=== PATIENT | male | born 1995 | race Caucasian/White ===

== ENCOUNTER 2020-08-09 13:27 | Emergency (ER) | payer OTHER, SELFPAY ==
[2020-08-09 13:37] VITALS: BP 121/69; PULSE 77; RESP 20; TEMP 36.6; O2SAT 100
--- NOTE | 2020-08-09 14:01 | ED.SKABFB ---
HPI - Skin/Abscess/Foreign Bdy General Chief complaint: Skin/Abscess/Foreign Body Stated complaint: rash Time Seen by Provider: 08/09/20 13:50 Source: patient and RN notes reviewed History of Present Illness HPI narrative: 24 year old male who presents to [facility] with complaints of 5 day history of lesion to the medial area of his left foot near ankle. Patient states area started as small red raised area which he thought a mosquito bite that has increased in size to 3.5cm X3cm area of red raised rough looking skin with some inner blackish brown scabbing to center. Patient states that when he awoke this morning he had bloody yellowish drainage coming from lesion area. He denies any fevers, chills or any sweats,he has been cleaning with some wound spray and putting hydrocortisone ointment to lesion. Patient states that area is mildly aching and is itchy at times. MD complaint: rash and lesion Onset (ago): day(s) (5) Tetanus up to date: yes Location: L foot Severity: mild Severity scale (1-10): 2 Quality: aching and pruritic Pain Consistency: colicky Relieving factors: topical medication Exacerbating factors: palpation and movement Context: other (thought was initally a bug bite) Associated symptoms: itching Treatments prior to arrival: OTC topical medication and corticosteroid Related Data Allergies Allergy/AdvReac Type Severity Reaction Status Date / Time No Known Allergies Allergy Unverified 08/06/12 17:54 Review of Systems Review of Systems: Narrative: CONSTITUTIONAL: Denies fever, chills, or sweats. EYES: Denies visual changes, redness, or discharge. ENT: Denies rhinorrhea, congestion, sore throat, or otalgia. CARDIOVASCULAR: Denies chest pain, palpitations, or edema. RESPIRATORY: Denies cough or dyspnea. GASTROINTESTINAL: Denies abdominal pain, nausea, vomiting, or diarrhea. GENITOURINARY: Denies dysuria or hematuria. SKIN: red raised rough skin lesion area to medial aspect of left foot near ankle area aching and itchy with some reported yellow and bloody drainage today. MUSCULOSKELETAL: Denies back pain, joint pain, or myalgia. NEUROLOGIC: Denies headache, numbness, or weakness. PSYCHIATRIC: Denies anxiety or depression. All systems reviewed & are unremarkable except as noted in HPI and below PMFSH Past Medical History Medical History (Updated 10/23/20 @ 14:22 by Mercedes Durant NP) Fracture, clavicle Surgical History Surgical History (Updated 08/09/20 @ 14:18 by Mercedes Durant NP) S/P wisdom tooth extraction Social History Social History (Updated 08/09/20 @ 14:19 by Mercedes Durant NP) Smoking status: Never smoker Alcohol intake: current Substance use: never Living arrangements: with family Occupation/Education: student Gender identity (if verbalized by the patient): Male Comments At time of signature, agree with nursing past medical, surgical, social history. There is no relevant family history pertinent to the presenting complaint Exam Narrative: Exam Narrative: GENERAL: Well-appearing, well-nourished, and in no acute distress. HEAD: Normocephalic, atraumatic. EYES: PERRLA and EOMI. ENT: Nares clear, no rhinorrhea or epistaxis. Mucous membranes moist. NECK: Supple.no lymphadenopathy CHEST: Clear to auscultation. No respiratory distress.SAO2 100% on room HEART: Regular rate and rhythm. No murmur heard. Normal peripheral pulses. ABDOMEN: Soft, nontender, nondistended, normal active bowel sounds. EXTREMITIES: Normal range of motion. No edema. SKIN: Warm, dry with [id number] area of red raised rough rash left medial foot below ankle that has some pustules noted in upper margins and scabbing in center which is brownish and black. states some aching and itching to area with yellowish bloody drainage noted this am. NEURO: No focal deficits. Alert and oriented x3. Course Vital Signs Vital signs: Vital Signs Temperature 36.6 C 08/09/20 13:37 Pulse Rate 77 08/09/20 13:37 Resp
== END 2020-08-09 14:27 | disposition home or self-care (01) ==
PROVIDERS: Emergency Provider Registered Nurse
DX: L03.116 Cellulitis of left lower limb (principal); L25.9 Unspecified contact dermatitis, unspecified cause
CPT/HCPCS: 99203; G0463

== ENCOUNTER 2024-07-05 22:41 | Observation (INO) | payer OTHER, SELFPAY ==
--- NOTE | ~2024-07-05 | CT_ITS ---
CT abdomen pelvis w con Ordering provider: Glen Hardy MD History: 28 years Male with . LLQ pain . Comparison: None. Technique: CT abdomen and pelvis with IV and without oral contrast. Automated exposure control and it erative reconstruction technique were employed. The dose-length product was 491.74 mGy-cm. 100 mL Omn ipaque 350 was given IV. Findings: VISUALIZED LOWER CHEST: Normal. UPPER ABDOMINAL ORGANS: Liver: Normal. Gallbladder: Contracted. Spleen: Normal. Stomach/duodenum: Normal. Pancreas: Normal. Adrenals: Normal. Kidneys: Normal. PELVIC ORGANS: The bladder is normal. BOWEL AND MESENTERY: Colon: Mild sigmoid diverticulosis without diverticulitis. Tubular structure is seen in the mid porti on of the pelvis which appear with a blind end suggestive of mucocele of the appendix versus appendic itis with an appendicolith seen near to the junction with the colon. Mickles diverticulum is less li jesús. No significant inflammatory changes seen around this tubular structure. Clinical correlation ad vised. Small Bowel: Normal. No obstruction. Peritoneum/mesentery: No free air. Minimal free fluid in the pelvis. enlarged lymph nodes in the root of the mesentery with the largest measures 1.3 cm. RETROPERITONEUM: Normal aorta. No retroperitoneal lymphadenopathy. MUSCULOSKELETAL: Superficial soft tissues: The superficial soft tissues are normal. Bones: Normal spine. IMPRESSION: 1. Tubular structure measuring 2 cm in the area of the mid abdomen suggestive of appendicitis versus mucocele of the appendix with appendicolith near to the junction with the colon. Other differential in the lower Meckel's diverticulum. Clinical correlation advised. 2. Minimal free fluid in the pelvis. Reviewed, dictated and finalized at location A.
[2024-07-05 22:47] VITALS: BP 123/77; PULSE 105; RESP 15; TEMP 37.2; O2SAT 97
[2024-07-05 22:54] VITALS: BP 123/77; PULSE 96; RESP 16; O2SAT 98
[2024-07-05 22:56] LABS: Add Urine Microscopic? NO; Appearance Urine Clear (Clear); Bilirubin Urine Negative (Negative); Blood Urine Negative (Negative); Color Urine Yellow (Yellow); Glucose Urine UA Negative (Negative); Ketones Urine Negative (Negative); Leukocyte Esterase Ur Negative LEU/UL (Negative); Nitrate Urine Negative (Negative); Protein Urine Negative (Negative); Specific Grav Ur 1.013 (1.001-1.035); pH Urine 6.5 (5.0-9.0)
[2024-07-05 22:58] LABS: Basophils Percent Auto 0.2 % (0.2-1.2); Eosinophils Absolute Auto 0.2 K/mm3 (0-0.3); Eosinophils Percent Auto 1.6 % (0-4.4); Hematocrit 42.8 % (42.0-52.0); Hemoglobin 15.2 g/dL (14.0-18.0); Immature Granulocyte Absolute 0.04 K/mm3 (0.00-0.031); Immature Granulocyte Percent A 0.3 % (0-0.5); Lymphocytes Absolute Auto 1.28 K/mm3 (0.9-3.2); Lymphocytes Percent Auto 10.1 % (18.3-44.2); Mean Corpuscular HGB Conc 35.5 g/dl (32-36); Mean Corpuscular Hemoglobin 30.6 pg (26-34); Mean Corpuscular Volume 86.1 fl (80-100); Mean Platelet Volume 10.4 fl (7.4-10.4); Monocytes Absolute Auto 0.9 K/mm3 (0.1-0.6); Monocytes Percent Auto 7.4 % (2.6-8.5); Neutrophils Absolute Auto 10.2 K/mm3 (1.3-6.7); Neutrophils Percent Auto 80.4 % (45.5-73.1); Platelet Count Result 240 k/mm3 (150-375); Red Blood Count 4.97 M/mm3 (4.6-6.20); Red Cell Distribution Width 13.2 % (11.5-14.5); White Blood Count 12.7 K/mm3 (4.5-10.0)
[2024-07-05 23:08] LABS: Potassium 3.5 mmol/L (3.4-5.0)
--- NOTE | 2024-07-05 23:09 | ED.ABDPAIN ---
HPI - Abdominal Pain General Chief Complaint: Abdominal Pain Stated Complaint: abd pain Time Seen by Provider: 07/05/24 22:43 History of Present Illness HPI narrative: 28-year-old male present to the emergency department for evaluation for lower abdominal pain. Patient states yesterday he started having some periumbilical abdominal pain but is now or lower abdominal pain. Patient states he has had some nausea with this. Patient declined any medications for pain control at this time. Patient has no prior history of abdominal surgeries and no prior history of colitis or diverticulitis. Related Data Home Medications Medication Instructions Recorded Confirmed acetaminophen 325 mg capsule 650 mg PO PRN PRN Pain (Scale 07/06/24 07/06/24 Score 1-3) ibuprofen 200 mg capsule 400 mg PO Q6H PRN Pain (Scale 07/06/24 07/06/24 Score 1-3) Allergies Allergy/AdvReac Type Severity Reaction Status Date / Time No Known Allergies Allergy Verified 07/05/24 22:41 Review of Systems Review of Systems: All systems reviewed & are unremarkable except as noted in HPI and below PMFSH Past Medical History Medical History (Updated 07/06/24 @ 00:32 by Glen Hardy MD) Fracture, clavicle Surgical History Surgical History (Updated 08/09/20 @ 14:18 by Mercedes Durant NP) S/P wisdom tooth extraction Family History Family History (Updated 07/06/24 @ 01:33 by Elisa Brown RN) Grandparent Lung cancer Crohn's disease Social History Social History (Updated 08/09/20 @ 14:19 by Mercedes Durant NP) Smoking status: Never smoker Alcohol intake: current Drinks per week: 1 Substance use: never Substance use type: does not use Do You Feel Safe in your Home?: Yes Lack of Transportation: No Lack of Food: Never True Current Housing: I Have Housing Concerned About Future Housing: No Difficulty Paying Gas/Electric Bills: No Difficulty Paying for Meds: No Currently Unemployed: No Education: Bachelor's Degree Difficulty w/ Childcare or Family Care: No Living arrangements: with family Occupation/Education: student Gender identity (if verbalized by the patient): Male Spiritual care concerns: No Exam Narrative: APPEARANCE: Well appearing, no pain, no distress, well-nourished. HEAD: normocephalic, atraumatic. EYES: PERRLA/EOMI, conjunctivae clear. NOSE: Normal no drainage NECK: Supple. No adenopathy, no masses. RESPIRATORY: Airway patent, respirations nonlabored. Clear to auscultation bilaterally, no rales, rhonchi, wheezing. CARDIOVASCULAR: Regular rate and rhythm without murmurs rubs or gallops. ABDOMINAL: Left lower quadrant and suprapubic tenderness to palpation, MUSCULOSKELETAL: Moves all extremities. Strength/ROM intact, No edema, No calf tenderness. NEURO: Alert. Cranial nerves II through XII intact. Good gait. Good coordination SKIN: Warm, dry. Normal Color Course Course Emergency Course: Patient was admitted to surgery for acute appendicitis. Vital Signs Vital signs: Vital Signs Temperature 98.9 F 07/05/24 22:47 Pulse Rate 105 H 07/05/24 22:47 Respiratory Rate 15 07/05/24 22:47 Blood Pressure 123/77 07/05/24 22:47 Pulse Oximetry 97 07/05/24 22:47 Oxygen Delivery Room Air 07/05/24 22:47 Temperature 98.8 F 07/06/24 06:04 Pulse Rate 90 07/06/24 05:12 Respiratory Rate 20 07/06/24 05:12 Blood Pressure 117/63 07/06/24 05:12 Pulse Oximetry 99 07/06/24 05:12 Oxygen Delivery Room Air 07/06/24 01:28 MDM - Abdominal Pain MDM Narrative Medical decision making narrative: 28-year-old male presenting ED for evaluation for lower abdominal pain. Patient is afebrile but does have a leukocytosis 12.7. Hemoglobin 15.2. Patient has no significant abnormalities on his CMP UA was negative for infection. Patient's CT did show evidence of acute appendicitis. Patient was started on Zosyn in the emergency department, blood culture w
[2024-07-05 23:10] LABS: Alanine Aminotransferase 27 U/L (6-50); Albumin Level 4.9 g/dL (3.5-5.1); Alkaline Phosphatase 70 U/L (38-126); Anion Gap 10 mmol/L (4-12); Aspartate Amino Transferase 32 U/L (17-59); Blood Urea Nitrogen 12 mg/dL (9-20); Calcium 9.5 mg/dL (8.4-10.2); Carbon Dioxide 26 mmol/L (22-30); Chloride 99 mmol/L (98-107); Estimated CRCL calculation 117 ml/min; Estimated Glomerular Filt Rate > 60; Glucose 113 mg/dL (65-110); Lipase 68 U/L (23-300); Sodium 135 mmol/L (137-145)
[2024-07-05] MEDS: SODIUM CHLORIDE 0.9% IV 1,000 ML 999 ML IV CONT (23:13)
[2024-07-06] VITALS (14 sets, daily range): BP systolic 100–151; BP diastolic 58–92; PULSE 71–108; RESP 14–20; TEMP 36.4–37.9; O2SAT 96–100; BMI 26.0
[2024-07-06] MEDS: SODIUM CHLORIDE 0.9% IV 1,000 ML 999 ML IV CONT (00:36)
[2024-07-06] MEDS: PANTOPRAZOLE SODIUM IV 40 MG VIAL IV PUSH (00:47)
[2024-07-06] MEDS: SODIUM CHLORIDE 0.9% IV 1,000 ML 125 ML IV CONT (01:03)
[2024-07-06] MEDS: PIPERACILLN/TAZ 3.375GM/NS50ML 3.375 GM/50 ML BAG IVPB ×2 (01:03→05:07)
--- NOTE | 2024-07-06 01:19 | ADMGEN ---
This patient, Barrera Leger, was admitted to 2 Medical Room 240-01. Patient/family oriented to hospital policies and general routines including ID bracelet, bed and alarms, visiting hours, pain management, procedures, bathroom and other care routines, personal items, smoking policy, room service/diet, and visiting hours. Information on how to activate the Rapid Response Team has been discussed. Patient/Family are encouraged to report perceived risks to care and to ask questions if they do not understand what they are told or what they should do.
--- NOTE | 2024-07-06 01:24 | ADMGEN ---
This patient, Barrera Leger, was admitted to 2 Medical Room 240-01. Patient/family oriented to hospital policies and general routines including ID bracelet, bed and alarms, visiting hours, pain management, procedures, bathroom and other care routines, personal items, smoking policy, room service/diet, and visiting hours. Information on how to activate the Rapid Response Team has been discussed. Patient/Family are encouraged to report perceived risks to care and to ask questions if they do not understand what they are told or what they should do. Report recived from XAVI Thornton in ED.
[2024-07-06] MEDS: HYDROmorphone HCL INJ (*CRX) 1 MG/ML SYR 0.5 MG IV PUSH (01:38)
[2024-07-06] MEDS: ACETAMINOPHEN 325 MG TABLET 650 MG PO (05:05)
--- NOTE | 2024-07-06 08:14 | WPDANESEPPF ---
Anes - Initial Pre Proc Eval Procedure: Operation Date: 07/06/24 08:30 Proposed Procedures p Laparoscopic Appendectomy, Possible Open - Martinez Villalba MD Date/Time: 07/06/24 08:14 Surgeon: Martinez Villalba MD Pre Op Diagnosis: Appendicitis Patient Data Age: 28 Gender: M Height: 1.83 m Weight: 87.2 kg Last Vital Signs Temp 98.4 F 07/06/24 08:01 Pulse 79 07/06/24 08:01 Resp 18 07/06/24 08:01 BP 108/63 07/06/24 08:01 Pulse Ox 98 07/06/24 08:01 O2 Del Method Room Air 07/06/24 01:28 Allergies Allergy/AdvReac Type Severity Reaction Status Date / Time No Known Allergies Allergy Verified 07/06/24 07:37 Home Medications Medication Instructions Recorded Confirmed Type acetaminophen 325 mg capsule 650 mg PO PRN PRN Pain (Scale 07/06/24 07/06/24 History Score 1-3) ibuprofen 200 mg capsule 400 mg PO Q6H PRN Pain (Scale 07/06/24 07/06/24 History Score 1-3) Laboratory Tests 07/05/24 07/05/24 22:50 22:53 WBC 12.7 H K/mm3 (4.5-10.0) RBC 4.97 M/mm3 (4.6-6.20) Hgb 15.2 g/dL (14.0-18.0) Hct 42.8 % (42.0-52.0) MCV 86.1 fl (80-100) MCH 30.6 pg (26-34) MCHC 35.5 g/dl (32-36) RDW 13.2 % (11.5-14.5) Plt Count 240 k/mm3 (150-375) MPV 10.4 fl (7.4-10.4) Immature Gran % (Auto) 0.3 % (0-0.5) Neut % (Auto) 80.4 H % (45.5-73.1) Lymph % (Auto) 10.1 L % (18.3-44.2) Swain % (Auto) 7.4 % (2.6-8.5) Eos % (Auto) 1.6 % (0-4.4) Baso % (Auto) 0.2 % (0.2-1.2) Lymph # (Auto) 1.28 K/mm3 (0.9-3.2) Swain # (Auto) 0.9 H K/mm3 (0.1-0.6) Eos # (Auto) 0.2 K/mm3 (0-0.3) Baso # (Auto) 0.0 K/mm3 (0.0-0.1) Abs Immat Gran (auto) 0.04 H K/mm3 (0.00-0.031) Absolute Neuts (auto) 10.2 H K/mm3 (1.3-6.7) Absolute Nucleated RBC 0.000 K/mm3 (0.0-0.012) Nucleated RBC % 0.0 % (0.0-0.2) Sodium 135 L mmol/L (137-145) Potassium 3.5 mmol/L (3.4-5.0) Chloride 99 mmol/L (98-107) Carbon Dioxide 26 mmol/L (22-30) Anion Gap 10 mmol/L (4-12) BUN 12 mg/dL (9-20) Creatinine 0.90 mg/dL (0.7-1.3) Estim Creat Clear Calc 117 ml/min Estimated GFR > 60 (59 - ) Glucose 113 H mg/dL (65-110) Calcium 9.5 mg/dL (8.4-10.2) Total Bilirubin 1.0 mg/dL (0.2-1.3) AST 32 U/L (17-59) ALT 27 U/L (6-50) Alkaline Phosphatase 70 U/L (38-126) Total Protein 9.0 H g/dL (6.3-8.2) Albumin 4.9 g/dL (3.5-5.1) Lipase 68 U/L (23-300) Urine Color Yellow (Yellow) Urine Appearance Clear (Clear) Urine pH 6.5 (5.0-9.0) Ur Specific Artemas 1.013 (1.001-1.035) Urine Protein Negative mg/dL (Negative) Urine Glucose (UA) Negative mg/dL (Negative) Urine Ketones Negative mg/dL (Negative) Ur Blood (Man) Negative (Negative) Urine Nitrate Negative (Negative) Urine Bilirubin Negative (Negative) Urine Urobilinogen 1.0 mg/dL (<2.0) Leukocyte Esterase Rfl Negative MALDONADO/UL (Negative) Patient hx anesthesia problems: none Family hx anesthesia problems: none Results Review: All pre-operative results and documents have been reviewed as part of the pre-operative evaluation. [facility] Past Medical History Medical History Fracture, clavicle Surgical History Surgical History S/P wisdom tooth extraction Family History Family History Grandparent Lung cancer Crohn's disease Social History Social History Smoking status: Never smoker Alcohol intake: gaudencio
--- NOTE | 2024-07-06 08:35 | PM.IMHP ---
H&P: HPI History of Present Illness Date/Time: 07/06/24 08:35 Chief Complaint: Acute appendicitis Narrative: Pt presents with 24 hrs hx of lower abd pain in the midline. Some nausea, no emesis. In ER last night he had WBC [address] scan showed dilated tubular sturcture in the lower midline measuring 2 cm in diameter with appdicolith. No perforation of free air or abscess. Pt is otherwise healthy. No prior abdominal surgery. No home meds. Review of Systems Review of Systems: The remainder of the review of systems to include constitutional, HEENT, cardiovascular, respiratory, GI, , integumentary, musculoskeletal, endocrine, immunologic, hematologic, psychiatric, and neurologic are all negative except for which is mentioned above in the HPI. [facility] Past Medical History Medical History Fracture, clavicle Surgical History Surgical History S/P wisdom tooth extraction Family History Family History Grandparent Lung cancer Crohn's disease Social History Social History Smoking status: Never smoker Alcohol intake: current Drinks per week: 1 Substance use: never Substance use type: does not use Do You Feel Safe in your Home?: Yes Lack of Transportation: No Lack of Food: Never True Current Housing: I Have Housing Concerned About Future Housing: No Difficulty Paying Gas/Electric Bills: No Difficulty Paying for Meds: No Currently Unemployed: No Education: Bachelor's Degree Difficulty w/ Childcare or Family Care: No Living arrangements: with family Occupation/Education: student Gender identity (if verbalized by the patient): Male Spiritual care concerns: No Meds Home Medications and Allergies Home Medications Medication Instructions Recorded Confirmed Type acetaminophen 325 mg capsule 650 mg PO PRN PRN Pain (Scale 07/06/24 07/06/24 History Score 1-3) ibuprofen 200 mg capsule 400 mg PO Q6H PRN Pain (Scale 07/06/24 07/06/24 History Score 1-3) Allergies Allergy/AdvReac Type Severity Reaction Status Date / Time No Known Allergies Allergy Verified 09/19/24 07:37 Vital Signs Vital Signs - 24 hr 07/05/24 22:47 07/05/24 22:54 07/06/24 00:45 Temperature 37.2 C 36.4 C Pulse Rate 105 H 96 75 Respiratory Rate 15 16 16 Blood Pressure 123/77 123/77 118/85 Pulse Oximetry 97 98 100 Oxygen Delivery Room Air 07/06/24 01:26 07/06/24 01:28 07/06/24 05:05 Temperature 36.6 C 37.9 C H Pulse Rate 71 Respiratory Rate 20 Blood Pressure 114/62 Pulse Oximetry 100 Oxygen Delivery Room Air 07/06/24 05:12 07/06/24 06:04 07/06/24 08:01 Temperature 37.9 C H 37.1 C 36.9 C Pulse Rate 90 79 Respiratory Rate 20 18 Blood Pressure 117/63 108/63 Pulse Oximetry 99 98 Oxygen Delivery Exam Const: General: comfortable and no acute distress HENMT: Ears: TM's normal bilaterally Face/Nose/Sinus: Normal nares present Mouth: Yes moist mucous membranes Eyes: General: appearance normal, both eyes and all related structures Sclera: sclerae normal Pupils: Equal, round and reactive pupils present EOM: EOMs intact bilaterally Neck: Neck: supple and no JVD Resp: Effort & Inspection: normal respiratory effort Auscultation: clear to auscultation bilaterally Cardio: Rate: regular rate Rhythm: regular rhythm GI: Other: Abd soft, nondistended, moderate tenderness with mild guarding lower abdomen suprapubic area. No generalized rebound. No masses, no ventral hernias. Skin: General skin exam: normal color and no rashes or lesions noted Neuro: General: gait normal Speech: normal speech Motor exam (neuro): 5/5 motor strength present throughout Sensory Exam: normal sensation Extrem: General: normal to inspection Psych:
--- NOTE | 2024-07-06 08:43 | WPDHPUPDATE1 ---
History and Physical Update Update Date/Time: 07/06/24 08:43 History and Physical has been reviewed, including an updated exam of the patient. There are NO changes in the patient's condition. Risks, benefits, and alternatives have been discussed and questions answered. Patient agrees to proceed with procedure.
[2024-07-06] MEDS: LIDO 1%/EPINEPHRINE 1:100,000 50 ML VIAL 30 ML INFILTRATE (09:43)
[2024-07-06] MEDS: BUPivacaine HCL 0.5% PF 30 ML VIAL INFILTRATE (09:43)
[2024-07-06] MEDS: LACTATED RINGERS 1,000 ML 30 ML IV CONT ×2 (09:53)
--- NOTE | 2024-07-06 09:57 | W.PM.PROC2 ---
Procedure Note - Detailed Date of Procedure 07/06/24 Pre-op Diagnosis Acute Appendicitis Post-op Diagnosis Same Procedure Performed Laparoscopic appendectomy. Surgeon Martinez Villalba MD Supervisor Last Model Department [facility] Anesthesia General Indications Patient is a 28-year-old white male presented to the emergency with a 1 day history of worsening lower abdominal pain. He had a leukocytosis of 12,700. Exam was consistent with an acute abdomen and CT scan showed a dilated appendix measuring up to 2cm in diameter without perforation or periappendiceal abscess. There was appendicolith noted within the proximal lumen of the appendix. He presents now for emergent laparoscopic appendectomy. Findings Patient had a moderately inflamed but non perforated appendicitis. Appendix was dilated and inflamed throughout its whole length. The base of appendix however was viable. There was no periappendiceal abscess. Description of Procedure After informed consent was obtained patient brought to the operating room was placed supine position and general endotracheal anesthesia was administered. The abdomen was then prepped draped usual sterile fashion after placement of Gilliland catheter to decompress the bladder. A time-out was then performed correctly identifying the patient and then I confirmed he was already on scheduled IV antibiotics. I then started by entering the abdomen left upper quadrant utilizing a 5mm Optiview port. Once inside the abdomen insufflated to adequate pneumoperitoneum of 15mmHg of CO2. Then placed the patient in the Trendelenburg position on the small bowel and the cecum a fall out of the pelvis. Additional trocar ports to include a 12mm periumbilical trocar port as well as a 5mm suprapubic trocar port and a 5mm left lower quadrant trocar port was then all placed under visualization. The appendix was visualized in the midline just in the upper portion of the pelvis. It was acutely inflamed throughout its whole length without evidence of perforation or gangrene. There is no periappendiceal abscess. The base of the appendix was viable. I then held the appendix up with a laparoscopic grasper and then made a defect through the mesoappendix just at the base. A 45mm Endo-ANGÉLICA stapler was then used to divide the appendix flush with the cecum. A vascular reload to the Endo-ANGÉLICA stapler was then used to divide the mesoappendix. The appendix was then placed into an Endo-Catch bag and brought out through the periumbilical trocar port fascial defect. It was sent to pathology for examination and then reaching the pneumoperitoneum and then inspected both staple lines. They were both hemostatic. I irrigated out the pelvis in the right lower quadrant the abdomen. Hemostasis was good. I then pulled the omentum down over the cecum and the staple lines. I then removed all the trocar ports under visualization all port sites appeared hemostatic. I then allowed the abdomen decompress. I then irrigated the port sites sterile saline solution hemostasis was good. Then closed the 12mm periumbilical trocar port fascial defect utilizing a 0 Vicryl suture placed in a figure-eight fashion. Skin incisions all the port sites in approximated utilizing a running subcuticular 4-0 Monocryl suture. Incisions were then cleaned the skin glue sterile dressings were applied. The patient tolerated the procedure well no complications. All sponges, needles, and instrument counts were correct at the end procedure. EBL was _10__cc. The patient was awakened and taken to recovery in stable and satisfactory condition. The Gilliland catheter was removed and the procedure. Implants None Estimated Blood Loss 10 Drains No Packing No Pathology Yes (Appendix sent to pathology) Complications No immediate complications Condition Stable Disposition PACU [facility] Billing Surgery - Charge Forward: Surgery Billing
[2024-07-06] MEDS: HYDROcodone/acetaminophen (*CRX) 5-325 MG TABLET 1 TAB PO ×2 (10:45→17:17)
--- NOTE | 2024-07-07 19:41 | PM.DS ---
DS: Admitting Diagnosis Discharge Date 07/06/24 Admitting Diagnosis Acute appendicitis DS: Discharge Diagnosis Discharge Diagnosis (1) Appendicitis: Code(s): K37 - Unspecified appendicitis Status: Acute DS: Summary Hospital Course Hospital Course: Patient presented to the emergency room with right lower quadrant abdominal pain and leukocytosis. His white blood count [id number]. His pain and present for about 24hours. Never had pain like this in the past. Workup in emergency room included a CT scan abdomen pelvis which showed a nearly 2cm dilated tubular structure medial towards the midline in the upper pelvis region. This was consistent with an acute appendicitis versus a mucocele of the appendix versus a possible Meckel's diverticulum. He was admitted to the hospital and started on broad-spectrum IV antibiotics. He was then taken to the operating room where he underwent a uncomplicated laparoscopic appendectomy. The appendix appeared to be acutely inflamed and he indeed had a non perforated acute appendicitis. Postoperatively his course recovery and was uneventful he was then transferred to surgical floor for routine postoperative care. On surgical floor his pain was well controlled without the use of any IV pain medications. He was given ambulate urinate spontaneously. No fever. No tachycardia. His incisions were healing well without any bleeding or drainage. He tolerated clear liquids and advanced to solid food later in the evening. He tolerated his dinner was discharged home in improved condition. Status at Discharge Functional status at discharge: independent ambulation Overall status at discharge: patient is back to baseline Time Spent with Patient Time attestation: Total time spent providing and/or coordinating discharge services: Time spent: Less than 30 minutes Exam GI: Other: Abdomen is soft nondistended. Laparoscopic port site incisions are healing well without any redness or bleeding. No ecchymosis. She skin glue intact. Expected mild tenderness around the port site incisions but the suprapubic pain present prior to surgery is now resolved DS: Data Data Completed and Pending Completed studies during hospitalization: Pending at discharge 07/06/24 09:12 Surgical [PTH] Routine Labs on day of discharge: Preliminary micro results at discharge 07/06/24 01:05 Blood Culture - Preliminary Blood 07/06/24 01:04 Blood Culture - Preliminary Blood Discharge Plan Discharge Attending physician on discharge: Martinez Villalba Consulting providers: uMnir Andujar; Marcial Peterson; Braulio Mascorro Discharging Clinician: Martinez Villalba Anticipated Discharge Date/Time: 07/06/24 18:00 Patient Disposition: Home, Self-Care Activity: may shower Diet: as tolerated Discharge Instructions: May discharge home when stable. Follow up with Dr. Villalba in the office in 2 weeks. Patient to call [phone] for an appointment. May shower in 24hours but do not soak incisions under water for 2 weeks. No lifting more than 10 to 15 lb for 2 weeks. May advance diet as tolerated. No driving for at least 3 days or until no longer taking any narcotic pain medication. Resume all home medications. Prescription for narcotic pain medicines will be sent to the patient's pharmacy if needed. May use Tylenol and/or ibuprofen in addition to or in place of narcotic pain medications for postoperative pain. Patient Instructions: Antibiotic Form Stand Alone Forms: General Discharge Information, Work/School Release IP Follow-up/Referrals: Martinez Villalba MD [Physician] - Discharge Medications: New hydrocodone-acetaminophen 5-325 mg tablet 1 tablet PO Q4H PRN (Reason: pain) Qty: 10 0RF Continued ibuprofen 200 mg Capsule 400 mg PO Q6H PRN (Reason: Pain (Scale Score 1-3)) acetaminophen 325 mg Capsule 650 mg PO PRN PRN (Reason: Pain (Scale Score 1-3)) Date
== END 2024-07-06 18:22 | disposition home or self-care (01) ==
LOC: ANHED 07-06 00:32 → ANH2MED 07-06 01:00
PROVIDERS: Admitting Provider Surgery; Emergency Provider Emergency Medicine; Visit Provider Surgery
PROC: 0DTJ4ZZ Resection of Appendix, Percutaneous Endoscopic Approach (ICD-10-PCS; CPT 44970; principal; 2024-07-06 08:30)
DX: K35.80 Unspecified acute appendicitis (principal)
CPT/HCPCS: 44970; 36415; 74177; 80053; 81003; 83690; 85025; 87040; 88304; 96360; 96374; 99285; A9270; G0378; J0330; J1100; J1170; J1885; J2250; J2405; J2470; J2543; J2704; J3010; J7030; J7120; Q9967

== ENCOUNTER 2024-12-31 16:55 | Emergency (ER) | payer OTHER, SELFPAY ==
--- NOTE | ~2024-12-31 | XR_ITS ---
EXAM: XR mandible min 4V DATE: 12/31/2024 17:42 HISTORY: right side of face in front of ear PAIN AFTER SNEEZING . COMPARISON: None available. FINDINGS: Normal mineralization. No fracture or dislocation. No lytic or blastic lesion. Joint space s and physes are maintained. The aerated spaces are clear. No erosion or periosteal change. Soft tiss ues within normal limits. IMPRESSION: Normal mandible radiograph findings. Reviewed, dictated and finalized at location K.
[2024-12-31 17:05] VITALS: BP 131/86; PULSE 94; RESP 18; TEMP 36.8; O2SAT 100
--- NOTE | 2024-12-31 17:07 | ED.GENADULT ---
HPI - General Adult General Chief complaint: Dental/Oral Stated complaint: Jaw Injury Time Seen by Provider: 12/31/24 17:15 Source: patient, RN notes reviewed and old records reviewed Mode of arrival: ambulatory Limitations: no limitations History of Present Illness HPI narrative: 29 year old male who presents to [facility] care with complaints of sneezing hard yesterday and heard and felt pop in his right jaw area. Patient reports that he feels like his teeth are not aligning and he can't chew or open his mouth fully. Patient does have some palpable tenderness to right jaw over TMJ joint area and patient is unable to fully open his mouth. Patient has no swelling noted under tongue or under right jaw line. He denies any difficulty with swallowing or any difficulty with his breathing. Patient has regular dental appointment on Wednesday. He states he has never had any problems with grinding his teeth during sleep but has been told that he clenches his teeth. Patient reports that he has used ice compresses to his right jaw region MD complaint: pain right jaw Onset (ago): day(s) (day 2 of symptoms) Location: face (right jaw at TMJ) Radiation: non-radiation Severity scale (1-10): 6 Pain Consistency: constant Treatments prior to arrival: cold therapy Related Data Allergies Allergy/AdvReac Type Severity Reaction Status Date / Time No Known Allergies Allergy Verified 12/31/24 17:25 Review of Systems Review of Systems: CONSTITUTIONAL: Denies fever, chills, or sweats. EYES: Denies visual changes, redness, or discharge. ENT: Denies rhinorrhea, congestion, sore throat, or otalgia.reports right jaw pain at TMJ region CARDIOVASCULAR: Denies chest pain, palpitations, or edema. RESPIRATORY: Denies cough or dyspnea. GASTROINTESTINAL: Denies abdominal pain, nausea, vomiting, or diarrhea. GENITOURINARY: Denies dysuria or hematuria. SKIN: Denies rash or itching. MUSCULOSKELETAL: Denies back pain, joint pain, or myalgia. NEUROLOGIC: Denies headache, numbness, or weakness. PSYCHIATRIC: Denies anxiety or depression. All systems reviewed & are unremarkable except as noted in HPI and below PMFSH Past Medical History Medical History Fracture, clavicle Surgical History Surgical History History of laparoscopic appendectomy 07/06/24 Dr. Villalba S/P wisdom tooth extraction Family History Family History Grandparent Lung cancer Crohn's disease Social History Social History Smoking status: Never smoker Alcohol intake: current Drinks per week: 1 Substance use: never Substance use type: does not use Do You Feel Safe in your Home?: Yes Lack of Transportation: No Lack of Food: Never True Current Housing: I Have Housing Concerned About Future Housing: No Difficulty Paying Gas/Electric Bills: No Difficulty Paying for Meds: No Currently Unemployed: No Education: Bachelor's Degree Difficulty w/ Childcare or Family Care: No Living arrangements: with family Occupation/Education: student Gender identity (if verbalized by the patient): Male Spiritual care concerns: No Comments At time of signature, agree with nursing past medical, surgical, social and family history. There is no relevant family history pertinent to the presenting complaint Exam Narrative: GENERAL: Well-appearing, well-nourished, and in some acute distress related to right jaw discomfort. HEAD: Normocephalic, atraumatic. EYES: PERRLA and EOMI. ENT: Nares clear, no rhinorrhea or epistaxis. Mucous membranes moist.TM's normal,throat pink with no swelling, some trismus noted, palpable discomfort at right jaw area, No Javier angina or any jaw area swelling NECK: Supple.no lymphadenopathy noted CHEST: Clear to auscultation. No respiratory distress. HEART: Regular rate and rhythm. No murmur heard. Normal peripheral pulses. ABDOMEN: Soft, nontender, nondistended, normal active bowel sounds. EXTREMITIES: Normal range of motion. No edema. SKIN: Warm, dry, no rash. NEURO: No focal deficits. Alert and oriented x3. Course Course Emergency Course: Patient is aware of diagnosis, understands and agrees to treatment plan.? Anticipatory guidance given.? Patient agrees to follow-up as directed and is aware of reasons to seek care at the emergency department. Portions of this record may have been created with voice recognition software Level of Care: Express Care Visit Vital Signs Vital signs: Vital Signs Temperature 36.8 C 12/31/24 17:05 Pulse Rate 94 12/31/24 17:05 Respiratory Rate 18 12/31/24 17:05 Blood Pressure 131/86 12/31/24 17:05 Pulse Oximetry 100 12/31/24 17:05 Oxygen Delivery Room Air 12/31/24 17:05 Temperature 36.8 C 12/31/24 17:05 Pulse Rate 94 12/31/24 17:05 Respiratory Rate 18 12/31/24 17:05 Blood Pressure 131/86 12/31/24 17:05 Pulse Oximetry 100 12/31/24 17:05 Oxygen Delivery Room Air 12/31/24 17:05 Reviewed Medical Decision Making MDM Narrative Medical decision making narrative: Exam findings and imaging show no acute concerns or changes; patient is non-toxic appearing and is in no distress.? Patient is appropriate for outpatient treatment and follow-up Differential Diagnosis Differential Diagnosis: right jaw pain, TMJ dysfunction, dislocation jaw, Medical Records Medical records reviewed: Yes I reviewed the external patient's medical records. Vital Signs Vital Signs: Vital Signs Temperature 36.8 C 12/31/24 17:05 Pulse Rate 94 12/31/24 17:05 Respiratory Rate 18 12/31/24 17:05 Blood Pressure 131/86 12/31/24 17:05 Pulse Oximetry 100 12/31/24 17:05 Oxygen Delivery Room Air 12/31/24 17:05 Temperature 36.8 C 12/31/24 17:05 Pulse Rate 94 12/31/24 17:05 Respiratory Rate 18 12/31/24 17:05 Blood Pressure 131/86 12/31/24 17:05 Pulse Oximetry 100 12/31/24 17:05 Oxygen Delivery Room Air 12/31/24 17:05 reviewed Imaging Data Attestation: I personally reviewed and interpreted this imaging study as follows: My impression: normal mandible radiograph with no dislocation or fracture noted no soft tissue swelling. Radiologist's impression: Close Mandible X-Ray (Signed) Tad Kc - 12/31/24 Launch?[facility] [address] [place] [address] XRay Report Signed Patient: Barrera Leger : 1995 MR#: [id number] Age: 29 Acct:[id number] Loc: [facility] ADM Date: 12/31/24Attending Dr: Ordering Physician: Mercedes Durant APRN Date of Service: 12/31/24 Procedure(s): XR mandible min 4V Accession Number(s): [id number] cc: UNDERGRADUATE ADVISOR PHYSICIAN; Mercedes Durant NETWORK MANAGER~ EXAM: XR mandible min 4V DATE: 12/31/2024 17:42 HISTORY: right side of face in front of ear PAIN AFTER SNEEZING . COMPARISON: None available. FINDINGS: Normal mineralization. No fracture or dislocation. No lytic or blastic lesion. Joint spaces and physes are maintained. The aerated spaces are clear. No erosion or periosteal change. Soft tissues within normal limits. IMPRESSION: Normal mandible radiograph findings. Reviewed, dictated and finalized at [facility] K. Please be advised this is a medical document. It is intended for [id number] communication. It is written in medical language and may contain unfamiliar abbreviations or verbiage. Medical documents are intended to carry relevant information, facts as evident, and the clinical opinion of the practitioner at the time of the encounter. This report may have been done utilizing a voice recognition system. Attempts have been made to correct errors. However, there may be uncorrected grammatical, spelling, and recognition errors present. The file time of this note does not necessarily represent the time of service. Dictated By: Tad Kc MD 12/31/24 9992 Signed By: <Electronically signed by Tad Kc MD in OV> Critical Care Time Critical Care Time Critical Care Time: No Discharge Plan Discharge Clinical Impression: Jaw pain TMJ arthralgia Qualifiers: Laterality: right Qualified Code(s): M26.621 - Arthralgia of right temporomandibular joint Patient Disposition: Home, Self-Care Condition: Stable Instructions: Antibiotic Form, Temporomandibular Disorder (ED) Additional Instructions: Tylenol or ibuprofen for any fever pain Muscle relaxers at bedtime cannot drive or operate machinery while taking this medicine Use ice or heat to right jaw area Follow-up with dentist either at regular scheduled appointment or call in the morning and see if can get in earlier Maintain soft diet avoid any hard foods or candies If your symptoms persist, change or worsen significantly before you can contact your personal physician then please, without delay, go to the emergency department for further evaluation. Follow-up with PCP in 7-10 days or sooner if needed Follow up with PCP soon in regards to your blood pressure which is elevated above threshold for referral. Blood pressure above 120/80 may indicate pre-hypertension. 131/86 Medrol Dosepak take as prescribed Patient Language: Luxembourger Prescriptions: New methylprednisolone [Medrol (Alvarez)] 4 mg tablets,dose pack See Rx Instructions .ROUTE .COMPLEX Qty: 21 0RF Rx Instructions: orally per package directions cyclobenzaprine 10 mg tablet 10 mg PO HS Qty: 14 0RF Rx Instructions: no driving or operating machinery or alcohol with this medication Follow-up/Referrals: PHYSICIAN,UNDERGRADUATE ADVISOR [Primary Care Provider] - Stand Alone Forms: Work/School Release IP Time of Disposition: 18:04 Quality [place] Coma Scale Eyes: Open Verbal: Oriented and Alert Motor: Follows Commands Kiera Coma Total Score: 15
== END 2024-12-31 18:11 | disposition home or self-care (01) ==
PROVIDERS: Emergency Provider Registered Nurse
DX: M26.621 Arthralgia of right temporomandibular joint (principal)
CPT/HCPCS: 70110; 99213; G0463